=== PATIENT | male | born 1985 | race African-American/Black ===

== ENCOUNTER 2018-11-26 20:29 | Emergency (ER) | payer BC, OTHER ==
[2018-11-26] MEDS ORDERED: Ondansetron PF 4 MG/2 ML Vial ONE (20:47)
[2018-11-26] MEDS ORDERED: Acetaminophen 500 MG TAB ONE (20:47)
[2018-11-26 21:25] LABS: Band 11 % (5-11); Hemoglobin 16.1 g/dL (14.0-18.0); Lymphocytes 28 % (21-51); MDiff Complete? YES; Mean Corpuscular HGB CONC 35.7 g/dL (32.0-36.0); Mean Corpuscular Hemoglobin 31.9 pg (27.0-31.0); Mean Corpuscular Volume 89.2 fL (78.0-98.0); Mean Platelet Volume 11.2 fL (7.4-10.4); Monocytes 7 % (0-10); Neutrophil 54 % (42-75); Platelet Count 203 thou/uL (130-400); RBC Distribution Width 10.5 % (11.5-14.5); Red Blood Cell (RBC) Count 5.06 mill/uL (4.70-6.10); Toxic Granulation SLIGHT; White Blood Cell (WBC) Count 4.3 thou/uL (4.8-10.8)
[2018-11-26 21:38] LABS: ALT (SGPT) 34 U/L (8-55); AST (SGOT) 39 U/L (5-34); Albumin 4.2 g/dL (3.5-5.0); Alkaline Phosphatase 62 U/L (40-150); Anion Gap 16 mmol/L (10-20); BUN (Urea Nitrogen) 15 mg/dL (8.9-20.6); Bilirubin, Total 1.5 mg/dL (0.2-1.2); Calc. Creatinine Clearance 0 mL/min (70-130); Calcium 8.7 mg/dL (7.8-10.44); Carbon Dioxide 22 mmol/L (22-29); Chloride 101 mmol/L (98-107); Estimated GFR-MDRD Greater than 90; Globulin 3.1 g/dL (2.4-3.5); Glucose 107 mg/dL (70-105); Lipase 24 U/L (8-78); Potassium 3.8 mmol/L (3.5-5.1); Protein, Total 7.3 g/dL (6.0-8.3); Sodium 135 mmol/L (136-145)
--- NOTE | 2018-11-26 21:58 | RAD ---
CHEST TWO VIEWS: 11/26/18 HISTORY: Cough and fever. COMPARISON: 12/29/16. FINDINGS: The cardiac silhouette is unremarkable. Shallow inspiration accentuates the pulmonary markings. Medi astinum is midline. No confluent air space consolidation, pneumothorax or pleural fluid. IMPRESSION: No active cardiopulmonary abnormalities are demonstrated. POS: [facility]
== END 2018-11-26 22:30 | disposition home or self-care (01) ==
LOC: SCSER 20:29
DX: B34.9 Viral infection, unspecified (principal); G43.909 Migraine, unspecified, not intractable, without status migrainosus; Z87.891 Personal history of nicotine dependence
CPT/HCPCS: 71046; 80053; 83605; 83690; 85025; 87040; 87804; 96361; 96374; J2405